=== PATIENT | male | born 1990 | race Caucasian/White ===

== ENCOUNTER 2024-02-10 20:23 | Emergency (ER) | payer BC ==
--- NOTE | 2024-02-10 22:47 | RAD REPORT ---
EXAM DESCRIPTION: CT - Knee Left Wo Con - 02/10/2024 10:22 pm CLINICAL HISTORY: pain, swelling, laceration COMPARISON: No comparisons TECHNIQUE: Thin axial CT images of the left knee, performed without IV contrast. Multiplanar reforma ts were generated and reviewed. All CT scans are performed using dose optimization technique as appropriate and may include automated exposure control or mA/KV adjustment according to patient size. FINDINGS: Soft tissue swelling along the anterior and medial knee. Skin irregularity at the level of the distal femoral metaphysis/upper upper patella, suggesting recent sutures. Punctate radiodensitie s along the hypo dermis just above the medial margin of the patella, see axial image 79 for example, which may relate to suture material or debris. Mildly hyperdense ill-defined hematoma along the lower aspect of the vastus medialis is seen just deep to this region, measuring 2 cm in greatest dimension . No acute fracture dislocation, or suspicious focal osseous lesion. Joint alignment is maintained. No significant degenerative changes. Osseous remodeling at the inferior tip of the patella, may relate to sequelae of enthesopathy. Trace knee joint effusion. IMPRESSION: Soft tissue abnormalities as above, suggesting recent sutures with possible minimal degr ee in the hypo dermis/ subcutaneous soft tissue just above the medial margin of the patella. Ill-defined 2 cm hematoma just posterior to these radiodensities, along the lower aspect of the vastu s medialis. Trace knee joint effusion.
--- NOTE | 2024-02-10 23:39 | ER ---
Nurse's Notes [facility] Name: Golden Herrera Age: 33 yrs Sex: Male : 1990 Arrival Date: 02/10/2024 Time: 20:23 Bed 8 Private MD: Diagnosis: Laceration without foreign body, left lower leg-sequela Presentation: 02/09 20:39 Chief complaint: Patient states: yesterday, injured knee at work, went to [facility] in [place]. They gave stitches and wrapped. Still in 10/[address] Hammer is family friend, stated stitches were poorly done and needed to come to ER. Coronavirus screen: Vaccine status: Patient reports being unvaccinated. Ebola Screen: Patient negative for fever greater than or equal to 101.5 degrees Fahrenheit, and additional compatible Ebola Virus Disease symptoms Patient denies exposure to infectious person. Patient denies travel to an Ebola-affected area in the 21 days before illness onset. No symptoms or risks identified at this time. Initial Sepsis Screen: Does the patient meet any 2 criteria? No. Patient's initial sepsis screen is negative. Does the patient have a suspected source of infection? No. Patient's initial sepsis screen is negative. Risk Assessment: Do you want to hurt yourself or someone else? Patient reports no desire to harm self or others. Onset of symptoms was February 09, 2024. 20:39 Method Of Arrival: Ambulatory 6 20:39 Acuity: KALLI 3 tm6 Triage Assessment: 20:40 General: Appears uncomfortable, Behavior is calm, cooperative. Pain: Complains of pain tm6 in left knee Pain does not radiate. Pain currently is 10 out of 10 on a pain scale. Pain began 1 day ago. EENT: No signs and/or symptoms were reported regarding the EENT system. Neuro: Level of Consciousness is awake, alert, obeys commands, Oriented to person, place, time, situation. Cardiovascular: Patient's skin is warm and dry. Respiratory: Airway is patent Respiratory effort is even, unlabored, Respiratory pattern is regular, symmetrical. GI: No signs and/or symptoms were reported involving the gastrointestinal system. Abdomen is flat, non-distended. : No signs and/or symptoms were reported regarding the genitourinary system. Derm: Reports pain that is 10 out of 10 on a pain scale. Derm: Wound noted left knee. Musculoskeletal: lac repair done yesterday, still in 10/10 pain to left knee. Injury Description: Laceration sustained to left knee was sustained 1 day ago. seen at [facility] in [place] yesterday for stitches. Historical: - Allergies: 20:40 Versed; tm6 - PMHx: 20:40 None; tm6 - PSHx: 20:40 jaw; tm6 - Immunization history:: Client reports having NOT received the Covid vaccine. - Infectious Disease History:: Denies. - Social history:: Smoking status: Patient reports the use of cigarette tobacco products, smokes one pack cigarettes per day. Patient uses alcohol, occasionally. Screenin:45 [facility] ED Fall Risk Assessment (Adult) History of falling in the last 3 months, jj7 including since admission No falls in past 3 months (0 pts) Confusion or Disorientation No (0 pts) Intoxicated or Sedated No (0 pts) Impaired Gait No (0 pts) Mobility Assist Device Used Yes (1 pt) Altered Elimination No (0 pt) Score/Fall Risk Level 0 - 2 = Low Risk Oriented to surroundings, Maintained a safe environment, Educated pt \T\ family on fall prevention, incl call for assistance when getting out of bed, Assessed \T\ reinforced patient's understanding of fall precautions. Abuse screen: Denies threats or abuse. Nutritional screening: No deficits noted. Tuberculosis screening: No symptoms or risk factors identified. Assessment: 21:45 General: Appears in no apparent distress. comfortable, Behavior is calm, cooperative, jj7 appropriate for age. Pain: Complains of pain in left leg. Derm: Wound noted medial aspect of left thigh. Vital Signs: 20:38 BP 137 / 90; Pulse 72; Resp 19; Temp 97.9(O); Pulse Ox 100% on R/A; Weight 74.84 kg; tm6 Height 6 ft. 0 in. ; Pain 10/10; 21:45 BP 129 / 96; Pulse 68; Resp 17; Pulse Ox 99% ; jj7 22:30 BP 119 / 87; Pulse 58; Resp 17; Pulse Ox 98% ; jj7 23:30 BP 128 / 100; Pulse 58; Resp 19; Pulse Ox 99% ; jj7 08 00:19 BP 120 / 86; Pulse 58; Resp 16; Temp 97.6; Pulse Ox 98% ; jj7 02/09 20:38 Body Mass Index 22.38 (74.84 kg, 182.88 cm) tm6 02/09 20:38 Pain Scale: Adult tm6 ED Course: 02/09 20:26 Patient arrived in ED. jj6 20:29 [facility] Miller [facility] sb4 20:29 Patric Hawley MD is Attending Physician. sb4 20:40 Triage completed. tm6 20:40 Arm band placed on left wrist. tm6 21:45 Patient has correct armband on for positive identification. Bed in low position. Call jj7 light in reach. Provided Education on: USE OF CALL ARELLANO. Client placed on continuous cardiac and pulse oximetry monitoring. NIBP monitoring applied. 22:23 Knee Left Wo Con In Process Unspecified. EDMS 23:23 Laura Sun RN is Primary Nurse. jj7 23:38 Minor Knox MD is Referral Physician. sb4 02/10 00:17 Dressings: non-adherent dressing x 1 left leg SADIE WRAP. Wound care: to LACERATION WITH jj7 SUTURES located on medial aspect of left thigh was cleaned with with NS, dressed with Neosporin, . 00:17 No provider procedures requiring assistance completed. Patient did not have IV access jj7 during this emergency room visit. Administered Medications: 00:17 Drug: Cephalexin PO 500 mg PO once Route: PO; jj7 00:27 Follow up: Response: No adverse reaction jj7 Medication: 02/09 21:45 VIS not applicable for this client. jj7 Outcome: 23:38 Discharge ordered by . sb4 02/10 00:17 Discharged to home ambulatory, jj7 Condition: good Discharge instructions given to patient, Instructed on discharge instructions, follow up and referral plans. medication usage, wound care, Demonstrated understanding of instructions, follow-up care, medications, wound care, Prescriptions given X 1, 00:27 Patient left the ED. jj7 Signatures: Dispatcher [employer] EDMS Alyson Garcia jj6 Laura Sun RN RN jj7 Amparo Miller PA-C PA-C 4 Cynthia Torres RN RN 6
--- NOTE | 2024-02-10 23:39 | EDPHYS ---
Physician Documentation [facility] Name: Golden Herrera Age: 33 yrs Sex: Male : 1990 Arrival Date: 02/10/2024 Time: 20:23 Bed 8 Private MD: ED Physician Patric Hawley HPI: 02/10 17:30 This 33 yrs old Male presents to ER via Ambulatory with complaints of Knee Injury. sb4 17:30 Patient states that 2 days ago he had a work-related injury. He was using a rubber grinder and sb4 it slipped and tore through his left thigh and knee. He was sent to a urgent care center used by his work where he states that it was x-rayed and sutured closed. He states that they did not clean it or irrigated or discharge him on antibiotics and he is very concerned about infection developing. He does report swelling and pain but denies any drainage. Historical: - Allergies: 02/09 20:40 Versed; tm6 - PMHx: 20:40 None; tm6 - PSHx: 20:40 jaw; tm6 - Immunization history:: Client reports having NOT received the Covid vaccine. - Infectious Disease History:: Denies. - Social history:: Smoking status: Patient reports the use of cigarette tobacco products, smokes one pack cigarettes per day. Patient uses alcohol, occasionally. ROS: 02/10 17:30 Constitutional: Negative for fever, chills, and weight loss, sb4 Skin: Positive for laceration(s), of the medial aspect of left thigh and left knee, All other systems are negative, Exam: 17:30 Constitutional: This is a well developed, well nourished patient who is awake, alert, sb4 and in no acute distress. Head/Face: Normocephalic, atraumatic. Eyes: Extra-ocular motions intact. Periorbital areas with no swelling, redness, or edema. ENT: Mucous membranes moist. 17:30 Skin: Wound recheck: Suture laceration closure: the wound is healing well, the edges are well approximated, no evidence of dehiscence, no drainage, no swelling, mild erythema, Vital Signs: 02/09 20:38 BP 137 / 90; Pulse 72; Resp 19; Temp 97.9(O); Pulse Ox 100% on R/A; Weight 74.84 kg; tm6 Height 6 ft. 0 in. ; Pain 10/10; 21:45 BP 129 / 96; Pulse 68; Resp 17; Pulse Ox 99% ; jj7 22:30 BP 119 / 87; Pulse 58; Resp 17; Pulse Ox 98% ; jj7 23:30 BP 128 / 100; Pulse 58; Resp 19; Pulse Ox 99% ; jj7 02/10 00:19 BP 120 / 86; Pulse 58; Resp 16; Temp 97.6; Pulse Ox 98% ; jj7 02/09 20:38 Body Mass Index 22.38 (74.84 kg, 182.88 cm) tm6 02/09 20:38 Pain Scale: Adult tm6 MDM: 02/09 20:31 Patient medically screened. sb4 02/10 17:30 Data reviewed: vital signs, nurses notes, radiologic studies, and as a result, I will sb4 discharge patient. Management of patient was discussed with the following: Warp Knitter Helper: Dr. Knox, reviewed CT images and evaluated patient at bedside. Did not recommend any further intervention. Will start patient on prophylactic antibiotics and he will follow-up in office in 2 days. Counseling: I had a detailed discussion with the patient and/or guardian regarding the historical points, exam findings, and any diagnostic results supporting the discharge/admit diagnosis, radiology results, the need for outpatient follow up, a general surgeon, to return to the emergency department if symptoms worsen or persist or if there are any questions or concerns that arise at home. 02/09 20:54 Order name: Knee Left Wo Con; Complete Time: 22:52 EDAR 02/09 23:41 Order name: Wound dressing; Complete Time: 00:17 sb4 Administered Medications: 00:17 Drug: Cephalexin PO 500 mg PO once Route: PO; jj7 00:27 Follow up: Response: No adverse reaction jj7 Disposition Summary: 02/10/24 23:38 Discharge Ordered Notes: Location: Home sb4 Problem: new sb4 Symptoms: are unchanged sb4 Condition: Stable sb4 Diagnosis - Laceration without foreign body, left lower leg - sequela sb4 Followup: sb4 - With: Minor Knox MD - When: 2 - 3 days - Reason: Wound Recheck, Recheck today's complaints, Re-evaluation by your physician Discharge Instructions: - Discharge Summary Sheet sb4 - Laceration Care, Adult, [id number] sb4 Forms: - Antibiotic Education sb4 - Patient Portal Instructions sb4 - Leadership Thank You Letter sb4 Prescriptions: - Cephalexin 500 mg Oral Capsule - take 1 capsule ORAL route every 8 hours for 10 days; 30 capsule; Refills: 0, sb4 Product Selection Permitted Addendum: 02/18/2024 08:56 Co-signature as Attending Physician, Patric Hawley MD I reviewed the patient's care r n provided by the Advanced Practice Provider and agree with the diagnosis and treatment plan. Signatures: Dispatcher [employer] EDAR Patric Hawley MD MD rn Johnson, Juwairiyah RN RN jj7 Amparo Miller PA-C PA-C sb4 Cynthia Torres RN RN tm6
[2024-02-11] MEDS ORDERED: CEPHALEXIN 250 MG CAP ONE (00:04)
[2024-02-11 00:52] VITALS: BP 120/86; TEMP 97.6; O2SAT 98
== END 2024-02-11 00:27 | disposition home or self-care (01) ==
LOC: EDBD 20:23 → ER 20:23
DX: S81.812S Laceration without foreign body, left lower leg, sequela (principal); F17.210 Nicotine dependence, cigarettes, uncomplicated; W29 Contact with other powered hand tools and household machinery; Z88.8 Allergy status to other drugs, medicaments and biological substances
CPT/HCPCS: 73700; 99284